=== PATIENT | female | born 1975 | race Caucasian/White ===

== ENCOUNTER → 2017-02-09 | Outpatient (CLI) | payer BC ==
--- NOTE | 2017-02-09 15:59 | RAD ---
Indication shortness of breath for one week. PA and lateral views of the chest were obtained. No prior imaging of the chest is available. The heart, pulmonary vessels and mediastinum appear normal. The lungs are clear. There is no pleural fluid or pneumothorax. The bony structures appear grossly intact. IMPRESSION: No acute or focal process seen in the chest
== END | disposition home or self-care (01) ==
LOC: DXRADRC 15:19
PROVIDERS: ATTEND Nurse Practitioner Family
DX: R06.02 Shortness of breath (principal)
CPT/HCPCS: 71020

== ENCOUNTER → 2017-06-22 | Outpatient (CLI) | payer BC ==
--- NOTE | 2017-06-22 10:44 | RAD ---
Exam performed:3 views right shoulder Indication:Right shoulder pain for several months, no known injury Date of service:06/22/17. Comparison:No priors Findings : AP radiographs of the shoulder in internal and external rotation as well as a Y-view reveal the osseous structures to be intact and well aligned. The joint space is well-preserved. The articular margins are smooth. Impression: Radiographically normal shoulder.
--- NOTE | 2017-06-22 16:53 | RAD ---
AP and lateral cervical spine radiographs 06/22/2017 Clinical history: Neck pain. AP, lateral and AP open mouth odontoid digital radiographs of the cervical spine were obtained. Minimal lateral curvature of the cervical spine is seen convex to the left. Degenerative changes are seen consisting of vertebral endplate sclerosis, minimal anterior and posterior vertebral body osteophyte formation and mild disc space narrowing are seen predominantly at C5-6. No fracture or subluxation is seen. No prevertebral soft tissue swelling is noted. Atherosclerotic calcification is seen in the region of the carotid bifurcations. Impression: Degenerative changes are seen involving the cervical spine as outlined above. No acute osseous abnormality is seen.
== END | disposition home or self-care (01) ==
LOC: DXRADRC 10:25
PROVIDERS: ATTEND Nurse Practitioner Family
DX: M47.892 Other spondylosis, cervical region (principal); M25.511 Pain in right shoulder; I70.0 Atherosclerosis of aorta
CPT/HCPCS: 72040; 73030